=== PATIENT | female | born 1985 | race Caucasian/White ===

== ENCOUNTER 2016-12-16 10:35 | Emergency (ER) | payer BC ==
[~2016-12-16 10:35] MED LIST: AZEL15GE TOP; CLIN1GEL5 TOP; MTR600X PO; OXYC5TAB PO; PRENTAB26 PO
[2016-12-16 10:50] VITALS: TEMP 36.3; Ht 170.2 cm
[2016-12-16] MEDS ORDERED: BCPILLS PO (11:03)
[2016-12-16] MEDS ORDERED: KETOROLAC TROMETHAMINE 60 MG/2 ML VIAL IM STA (11:44)
--- NOTE | 2016-12-16 12:14 | DIAGNOSTIC IMAGING REPORT ---
RIGHT ANKLE 3 VIEWS CLINICAL HISTORY: Right ankle pain. Twisting injury. FINDINGS: 3 views of the right ankle are obtained. No prior studies are available for comparison at the time of dictation. The skeletal structures are well mineralized. No fracture is seen at the ankle joint. A small avulsion fracture is suggested along the lateral aspect of the hindfoot, seen only on the frontal view. The ankle mortise is intact. There is no joint effusion. There is minimal overlying soft tissue swelling. IMPRESSION: 1. There is no radiographic evidence of right ankle fracture. 2. Suspect a small avulsion fracture lung the lateral aspect of the hindfoot, likely arising from the calcaneus. This is only seen on the frontal view. Correlate for point tenderness at this site. Electronically signed by: Ken Schmidt M.D. 12/16/2016 12:13 PM Dictated Date/Time: 12/16/2016 12:10 PM
--- NOTE | 2016-12-16 12:44 | EMERGENCY ROOM VISIT NOTE ---
ED Visit Note First contact with patient: 10:58 CHIEF COMPLAINT: Right ankle injury a few hours ago HISTORY OF PRESENT ILLNESS: Patient is a 31-year-old white female who presents to emergency department, her for evaluation of right ankle pain. She was finishing a 5K, when she rolled the right ankle. She is not sure if she stepped on a rock or some uneven ground. She rolled the right ankle, and fell striking the flexed left knee. She caught herself with her hands, and notes some abrasions to her palms. She did not strike her head or lose consciousness. She was able to get up and take the last few steps to reddish the race, then sat down and subsequently has not put any weight on the right ankle. She did not take any medications for pain, nor apply any ice, but ice was given to her here in the emergency department. She rates her pain a 7/10. She denies any prior history of right ankle injuries. REVIEW OF SYSTEMS: Review of systems as per HPI. All other systems reviewed were negative. At least 6 systems reviewed. PMH: Electronic medical records are reviewed and summarized as above/below. See Problem List. SOCIAL HISTORY: Patient lives at home with her . Employed. PHYSICAL EXAM: Vital Signs: Reviewed Nurse's notes. MENTAL STATUS: Alert, oriented, and cooperative. MUSCULOSKELETAL: The right ankle is moderately swollen and tender over the lateral aspect but the skin is intact and there is no ligamentous instability. No pain over the 5th metatarsal or fibular head. Lisfranc joint is negative. There is no deformity. The foot and toes are warm and well-perfused. Sensation to pain and light touch is intact. Examination of the left knee show a superficial abrasion, with slight soft tissue swelling, more over the tibial tuberosity, then over the patella. There is no knee joint effusion palpable. No palpable deformity over the patella, and knee range of motion is full. No ligamentous instability is appreciated. EMERGENCY DEPARTMENT COURSE: The patient had been given an ice pack. Her primary concern is her right ankle. On exam, I do not suspect fracture involving the left knee, and she was in agreement and deferred x-rays of the knee. She was reluctant to take any oral medications that she has a sensitive stomach and had not had anything to eat or drink, therefore was given Toradol 60 mg IM. X-ray reveals of the right ankle shows a small evulsion fracture laterally, with soft tissue swelling. A compression sleeve and gel splint were applied to the ankle under my direction and the position was satisfactory. Crutches were issued and patient was instructed on a non weight bearing gait. Conservative care measures were discussed. Patient declined narcotic analgesia. She was referred to orthopedics or her PCP for follow-up if her symptoms are not improving. Differential diagnosis include foot verses ankle sprain/fracture, contusion, dislocation. RIGHT ANKLE 3 VIEWS CLINICAL HISTORY: Right ankle pain. Twisting injury. FINDINGS: 3 views of the right ankle are obtained. No prior studies are available for comparison at the time of dictation. The skeletal structures are well mineralized. No fracture is seen at the ankle joint. A small avulsion fracture is suggested along the lateral aspect of the hindfoot, seen only on the frontal view. The ankle mortise is intact. There is no joint effusion. There is minimal overlying soft tissue swelling. IMPRESSION: 1. There is no radiographic evidence of right ankle fracture. 2. Suspect a small avulsion fracture lung the lateral aspect of the hindfoot, likely arising from the calcaneus. This is only seen on the frontal view. Correlate for point tenderness at this site. Problem List Medical Problems: (1) Abdominal pain affecting Status: Resolved (2) Asthma, Unspecified Status: Chronic (3) Blunt abdominal trauma Status: Resolved (4) CHOLELITH W CHOLECYS NEC Status: Resolved (5) INFECTIOUS MONONUCLEOSIS Status: Resolved (6) Status: Resolved (7) Shortness of breath Status: Resolved (8) URIN TRACT INFECTION NOS Status: Resolved Surgical Problems: (1) Cholecystectomy Status: Resolved Current/Historical Medications Scheduled Control Pills ( Control Pills), 1 TAB PO DAILY Multivit/Min/Iron/Fol Ac/Pren ( Vitamin), 1 TAB PO DAILY Allergies Coded Allergies: Methylprednisolone (Verified Allergy, Severe, EDEMA AIRWAY, 12/16/16) IV FORM, NO PROBLEM WITH DEPOMEDROL Amoxicillin (Verified Allergy, Unknown, HIVES, 12/16/16) Penicillins (Verified Allergy, Unknown, `, 12/16/16) Sulfamethoxazole w/Trimethoprim (Verified Allergy, Unknown, NAUSEA, 12/16/16 ) Vital Signs Date Time Temp Pulse Resp B/P (MAP) Pulse Ox O2 Delivery O2 Flow Rate FiO2 12/16/16 13:08 59 16 112/48 97 12/16/16 10:50 36.3 59 17 95/62 93 Room Air Medications Administered Medications (Trade) Dose Ordered Sig/Diane Route Start Time Stop Time Status Last Admin Dose Admin Ketorolac Tromethamine (Toradol Inj) 60 mg NOW STAT IM 12/16/16 11:44 12/16/16 11:45 DC 12/16/16 11:44 60 MG Departure Information Impression Primary Impression: Right ankle sprain Referrals Lizette Kern M.D. (PCP) Patient Instructions My [facility] Additional Instructions Ibuprofen(Motrin, Advil) may be used for fever or pain. Use 600mg every six hours as needed. Take with food. Avoid using more than 2400mg in a 24 hour period. Do not use 2400mg per day for more than three consecutive days without physician direction. Prolonged inappropriate use can lead to stomach upset or ulcers. This medication can be taken if you need to drive, work, or perform activities which may be dangerous when taking narcotic pain medication. (AND/OR) Acetaminophen(Tylenol) may be used for fever or pain. Use 1000mg every six hours as needed. Avoid using more than 3000mg in a 24 hour period. This medication can be taken if you need to drive, work, or perform activities which may be dangerous when taking narcotic pain medication. Ice compresses for 20 minutes at a time four times daily for 2-3 days. Use the gel splint and crutches as instructed. Rest and elevate your injury. Continue current medications. Return to the ER immediately for any numbness, tingling, severe pain, extreme swelling in the extremity or as needed. Followup with your family doctor or orthopedic surgery if no improvement in 5-7 days.
[2016-12-16 13:08] VITALS: BP 112/48; PULSE 59; O2SAT 97
== END 2016-12-16 13:09 | disposition home or self-care (01) ==
LOC: C.EDB 10:36 → C.EDD 13:09
DX: S93.401A Sprain of unspecified ligament of right ankle, initial encounter (principal); S80.212A Abrasion, left knee, initial encounter; X50.1XXA Overexertion from prolonged static or awkward postures, initial encounter; W01.198A Fall on same level from slipping, tripping and stumbling with subsequent striking against other object, initial encounter; J45.909 Unspecified asthma, uncomplicated; Z87.828 Personal history of other (healed) physical injury and trauma; Z87.440 Personal history of urinary (tract) infections; Z90.49 Acquired absence of other specified parts of digestive tract

== ENCOUNTER → 2017-01-01 | Outpatient (CLI) | payer BC ==
[~2017-01-01] MED LIST changes: -AZEL15GE TOP; +BCPILLS PO; -CLIN1GEL5 TOP; -MTR600X PO; -OXYC5TAB PO
--- NOTE | 2017-01-01 13:16 | DIAGNOSTIC IMAGING REPORT ---
RIGHT ANKLE MIN 3 VIEWS CLINICAL HISTORY: RIGHT ANKLE FX Right trauma. Pain. COMPARISON: 12/16/2016 DISCUSSION: No change in the small linear avulsion from the lateral calcaneus. All remaining osseous structures are unremarkable. Subtalar joint is intact. There is no evidence for soft tissue swelling. IMPRESSION: Small linear avulsion anterior calcaneus unchanged from the prior study. The above report was generated using voice recognition software. It may contain grammatical, syntax or spelling errors. Electronically signed by: Brett Marin M.D. 01/01/2017 1:14 PM Dictated Date/Time: 01/01/2017 1:13 PM
== END | disposition home or self-care (01) ==
LOC: C.RDSM 07:00
PROVIDERS: ATTEND Family Medicine
DX: S92.001A Unspecified fracture of right calcaneus, initial encounter for closed fracture (principal); X58.XXXA Exposure to other specified factors, initial encounter

== ENCOUNTER → 2017-09-30 | Outpatient (CLI) | payer BC | END | disposition home or self-care (01) | LOC: C.RDSM 08:20 | PROVIDERS: ATTEND Podiatrist | DX: M79.671 Pain in right foot (principal) ==

== ENCOUNTER → 2017-10-09 | Outpatient (CLI) | payer BC ==
--- NOTE | 2017-10-09 17:23 | DIAGNOSTIC IMAGING REPORT ---
R LOWER EXT NONJOINT WITHOUT CLINICAL HISTORY: RT FOOT AND ANKLE PAIN TECHNIQUE: Multi axial MRI acquisition COMPARISON STUDY: None FINDINGS: Signal characteristics of the bulk of the osseous structures are unremarkable. There is moderate degenerative change of the articular surface between the cuboid and tarsal navicular. Mild subchondral cyst formation is present. There is moderate sclerosis of the articular endplates. All remaining osseous structures are considered unremarkable. Bony alignment is anatomic. All major ligamentous and tendinous structures are intact. There is no evidence for soft tissue mass or collection. IMPRESSION: 1. Moderate degenerative change of the articular services between the cuboid and tarsal navicular. 2. Mild subchondral cyst formation. 3. Study is otherwise negative. The above report was generated using voice recognition software. It may contain grammatical, syntax or spelling errors. Electronically signed by: Brett Marin M.D. 10/09/2017 5:21 PM Dictated Date/Time: 10/09/2017 5:18 PM
--- NOTE | 2017-10-09 17:46 | DIAGNOSTIC IMAGING REPORT ---
R LOWER EXT JOINT WITHOUT CLINICAL HISTORY: ANKLE/FOOT PAIN trauma. Pain. TECHNIQUE: Multi axial MRI acquisition COMPARISON STUDY: None FINDINGS: Significant degenerative change of the articular services between cuboid and tarsal navicular. Moderate degenerative subchondral cyst formation. Signal characteristics of all remaining osseous structures are intact. Ankle mortise is aligned anatomically. Medial lateral collateral ligament structures are intact. All major ligamentous and tendinous structures are unremarkable. Kidneys tendon is intact. Structures the plantar fascia are unremarkable. IMPRESSION: 1. Considerable degenerative changes of the articular services between tarsal cuboid and tarsal navicular. 2. All remaining components of the study are unremarkable. 3. All major ligamentous and tendinous structures are intact. The above report was generated using voice recognition software. It may contain grammatical, syntax or spelling errors. Electronically signed by: Brett Marin M.D. 10/09/2017 5:45 PM Dictated Date/Time: 10/09/2017 5:41 PM
== END | disposition home or self-care (01) ==
LOC: C.MRI 16:17
PROVIDERS: ATTEND Podiatrist
DX: M77.50 Other enthesopathy of unspecified foot and ankle (principal); M17.11 Unilateral primary osteoarthritis, right knee; M79.2 Neuralgia and neuritis, unspecified; M79.671 Pain in right foot

== ENCOUNTER 2019-04-12 05:46 | Inpatient (IN) ==
--- NOTE | 2019-04-06 13:34 | Anesthesiology Consultation ---
Date of Service April 06, 2019 Assessment & Plan (1) Encounter for pre-operative examination: Chart Review Chart Review: Pending: Refer to Additional Notes / Consult section (pending preop labs) and Patient seen in Pre Admission Testing Teaching & Discussion Pre-Anesthesia Teaching/Discussion Notes: Instructed NPO after midnight before surgery,except medications with 15 cc of water. Medication instructions provided according to the PAT guidelines. History Surgery Operation Date: 04/12/19 07:30 Proposed Procedures p Section in JAMES - Caprice Vásquez MD Height/Weight Height: 5 ft 7 in Weight: 93.4 kg Allergies Allergy/AdvReac Type Severity Reaction Status Date / Time methylprednisolone Allergy Severe EDEMA Verified 03/31/19 15:40 AIRWAY amoxicillin Allergy Unknown HIVES Verified 03/31/19 15:40 Bactrim Allergy Unknown NAUSEA Verified 12/16/16 11:03 Penicillins Allergy Unknown Hives Verified 03/31/19 15:40 sulfamethoxazole Allergy Unknown NAUSEA Verified 03/31/19 15:40 trimethoprim Allergy Unknown NAUSEA Verified 03/31/19 15:40 Medications Home Medications Medication Instructions Recorded Confirmed Last Taken PNV,calcium 18-mayf-zklro acid 1 tab PO QPM 01/31/19 03/31/19 01/30/19 21:00 [ Plus (calcium carb)] clindamycin phosphate 1 applic TOPICAL BID 01/31/19 03/31/19 01/31/19 08:00 Past Medical History Medical History Exercise-induced asthma stable History of anxiety IBS (irritable bowel syndrome) Exercise / Class Metabolic Activity III < 4 Walking/Shop/Light housework Past Family History Family History Aunt Family history of diabetes mellitus Past Surgical History Surgical History History of section History of cholecystectomy History of colonoscopy W/ POLYPECTOMY History of wisdom tooth extraction Past Anesthesia History c/s (primary, failure to descend): 16: dosed epidural at L3-L4 right of midline (pt felt faint and had decreased BP with placement of epidural/laid down per anesthesia records). Patient reports that she did have pain/discomfort during c/s. History of PONV History of PONV () and Hx of Motion Sickness (occasional) Social History Smoking Status: Never smoker Do You Dip or Chew Tobacco: No Hx Alcohol Use: No Hx Substance Use: No substance use type: does not use Review of Systems related reflux. Patient denies chest pain, shortness of breath, cough, wheezing, palpitations. Physical Exam Vital Signs VITALS BP 101/66 P 76 TEMP 98.2 SP02 98%RA RESP 16 PHYSICAL Full neck and c-spine range of motion. Full TMJ range of motion. TMD 4 finger breaths Mallampati Score 1 Dentition: intact Lungs: clear throughout to auscultation Cardiac: regular rate and rhythm, I/ systolic murmur Spine: normal Extremities: no edema
[2019-04-06 15:00] LABS: Basophils # (auto) 0.01 K/uL (0-0.2); Basophils % (auto) 0.1 %; Eosinophils # (auto) 0.07 K/uL (0-0.5); Eosinophils % (auto) 0.9 %; Hematocrit (blood only) 35.2 % (37-47); Hemoglobin 11.8 g/dL (12.0-16.0); Immature Granulocytes # (auto) 0.11 K/uL (0.00-0.02); Immature Granulocytes % (auto) 1.5 %; Lymphocytes # (auto) 1.55 K/uL (1.2-3.4); Lymphocytes % (auto) 20.6 %; Mean Corpuscular Hemoglobin 32.5 pg (25-34); Mean Corpuscular Hgb Conc 33.5 g/dL (32-36); Mean Platelet Volume 11.9 fL (7.4-10.4); Monocytes # (auto) 0.68 K/uL (0.11-0.59); Neutrophils # (auto) 5.12 K/uL (1.4-6.5); Neutrophils % (auto) 67.9 %; Platelet Count 167 K/uL (130-400); RDW Coefficient of Variation 13.6 % (11.5-14.5); RDW Standard Deviation 47.7 fL (36.4-46.3); Red Blood Count 3.63 M/uL (4.2-5.4); White Blood Count 7.54 K/uL (4.8-10.8)
[2019-04-12] MEDS ORDERED: CITRIC ACID/SODIUM CITRATE 15 ML UDC PO SCH (06:00)
[2019-04-12] MEDS ORDERED: CEFAZOLIN 2,000 MG in SYRINGE 0 ML IV SCH (06:00)
[2019-04-12] MEDS ORDERED: LACTATED RINGER'S 1,000 ML IV SCH ×2 (06:00→07:45)
[2019-04-12 06:18] LABS: Basophils # (auto) 0.02 K/uL (0-0.2); Basophils % (auto) 0.2 %; Eosinophils # (auto) 0.09 K/uL (0-0.5); Eosinophils % (auto) 0.9 %; Hematocrit (blood only) 36.3 % (37-47); Hemoglobin 12.4 g/dL (12.0-16.0); Lymphocytes # (auto) 1.98 K/uL (1.2-3.4); Lymphocytes % (auto) 20.3 %; Mean Corpuscular Hemoglobin 31.8 pg (25-34); Mean Corpuscular Volume 93.1 fL (80-100); Mean Platelet Volume 10.7 fL (7.4-10.4); Monocytes # (auto) 0.68 K/uL (0.11-0.59); Neutrophils # (auto) 6.79 K/uL (1.4-6.5); Neutrophils % (auto) 69.6 %; Platelet Count 171 K/uL (130-400); RDW Coefficient of Variation 13.5 % (11.5-14.5); White Blood Count 9.76 K/uL (4.8-10.8)
[2019-04-12 06:19] LABS: Mean Corpuscular Hgb Conc 34.2 g/dL (32-36)
[2019-04-12] MEDS ORDERED: CLINDAMYCIN 900 MG in DEXTROSE 5% 50 ML IV STA (07:19)
[2019-04-12] MEDS ORDERED: GENTAMICIN CONSULT ACTIVE PRN (07:19)
[2019-04-12] MEDS ORDERED: GENTAMICIN SULFATE 40 MG/ML 20 ML VIAL IV STA (07:19)
--- NOTE | 2019-04-12 07:21 | History & Physical Bridge Note ---
Date of Service April 12, 2019 History & Physical Bridge Note I have examined the patient, reviewed the History & Physical and in the interval since the performance of the History & Physical I have noted the following changes of clinical significance: no changes noted
[2019-04-12] MEDS ORDERED: fentaNYL citrate 100 MCG/2 ML VIAL ONE (07:31)
[2019-04-12] MEDS ORDERED: GENTAMICIN SULFATE 150 MG in DEXTROSE 5% 100 ML IV STA (07:31)
[2019-04-12] MEDS ORDERED: MoRPHine SULFATE PF 1 MG/ML 10 ML AMP/VIAL ONE (07:31)
[2019-04-12] MEDS ORDERED: OXYTOCIN 10 UNITS/ML VIAL ONE ×3 (07:34→08:50)
[2019-04-12] MEDS ORDERED: DIPHTHERIA/TETANUS/PERTUSSIS 0.5 ML SYR/VIAL IM ONE (07:44)
[2019-04-12] MEDS ORDERED: SUPERCREAM 0.870% 15 GM JAR EXT PRN (07:44)
[2019-04-12] MEDS ORDERED: HYDROCORTISONE ACETATE 25 MG SUPP PR PRN (07:44)
[2019-04-12] MEDS ORDERED: SENNA 8.6 MG TAB PO PRN (07:44)
[2019-04-12] MEDS ORDERED: MAGNESIUM HYDROXIDE SUSP 30 ML UDC PO PRN (07:44)
[2019-04-12] MEDS ORDERED: BENZOCAINE 20% AER SPR 82.5 GM CAN EXT PRN (07:44)
[2019-04-12] MEDS ORDERED: ePHEDrine sulfate 50 MG/ML SYR ONE (07:53)
[2019-04-12] MEDS ORDERED: PHENYLEPHRINE 100MCG/ML 5ML SYR ONE (07:53)
[2019-04-12] MEDS ORDERED: ONDANSETRON INJ 2 MG/ML 2 ML VIAL ONE (08:15)
[2019-04-12] MEDS ORDERED: ePHEDrine sulfate 50 MG/ML AMP IV PRN (08:17)
[2019-04-12] MEDS ORDERED: NALOXONE HCL 0.08 MG in SYRINGE 1.8 ML IV PRN (08:17)
[2019-04-12] MEDS ORDERED: HYDROmorphone INJ 0.5 MG/0.5 ML SYR IV PRN (08:17)
[2019-04-12] MEDS ORDERED: PROMETHAZINE HCL 25 MG in SODIUM CHLORIDE 0.9% 50 ML IV PRN (08:17)
[2019-04-12] MEDS ORDERED: NALOXONE HCL 1 MG in SODIUM CHLORIDE 0.9% 1000ML 1,000 ML IV PRN (08:17)
[2019-04-12] MEDS ORDERED: MoRPHine SULFATE PF 1 MG/ML 10 ML AMP/VIAL INT SPINAL ONE (08:17)
[2019-04-12] MEDS ORDERED: DiphenhydrAMINE HCL 50 MG/ML VIAL IV PRN (08:17)
[2019-04-12] MEDS ORDERED: LACTATED RINGER'S 500 ML IV PRN (08:17)
[2019-04-12] MEDS ORDERED: NALOXONE HCL 0.4 MG/1 ML VIAL/CARP IV PRN (08:17)
[2019-04-12] MEDS ORDERED: NALBUPHINE HCL INJ 10 MG/ML AMP IV PRN (08:17)
[2019-04-12] MEDS ORDERED: NO NARCOTICS OR SEDATIVES SCH (08:30)
[2019-04-12] MEDS ORDERED: SODIUM CHLORIDE 0.9% 1000ML 1,000 ML IV SCH (08:30)
[2019-04-12] MEDS ORDERED: DC INTRASPINAL MORPHINE SCH (08:30)
--- NOTE | 2019-04-12 08:52 | Post Operative Brief Note ---
Immediate Post Op Note v1 Date of Surgery April 12, 2019 Pre & Post Diagnosis Operation Date: 04/12/19 07:30 Pre-Op Diagnosis: History of prior Caesarean Section Post-Op Diagnosis: Same as pre-op I identified the patient and participated in the time-out.: Yes Procedure Operation Date: 04/12/19 07:30 Actual Procedures p Repeat Section in LD(Bilateral) - Caprice Vásquez MD Surgeon Caprice Vásquez MD Cushion Mat Maker PEDRO Wharton Estimated Blood Loss 800 Findings Consistent with Post-Op Diagnosis Drains Suh Catheter Complications none Disposition Accompanied Patient To Recovery: Yes Disposition: L&D Overlapping Procedure I was present for: the critical portions of procedure. (I WAS PRESENT FOR THE ENTIRE CASE)
[2019-04-12] MEDS ORDERED: NON-FORMULARY MEDICATION (Clindamycin Phosphate 1 APPLN) TOP SCH (09:00)
[2019-04-12] MEDS: ONDANSETRON INJ 2 MG/ML 2 ML VIAL IV PRN ×2 (09:08→14:53)
--- NOTE | 2019-04-12 09:15 | Operative Report ---
DATE OF OPERATION: 04/12/2019 PREOPERATIVE DIAGNOSES: The patient is a 34-year-old G2, P1-0-0-1 at 39 weeks and 6 days of gestation with a history of prior , large for gestational age, declines TOLAC/ ( Trial of labor after / Vaginal after ), desires repeat . POSTOPERATIVE DIAGNOSES: The patient is a 34-year-old G2, P1-0-0-1 at 39 weeks and 6 days of gestation with a history of prior , large for gestational age, declines TOLAC/ ( Trial of labor after / Vaginal after ), desires repeat . PROCEDURE: Repeat low transverse with Pfannenstiel skin incision. SURGEON: Caprice Vásquez MD REGIONAL ENGAGEMENT CONSULTANT: PEDRO Wharton. ESTIMATED BLOOD LOSS: 800 ml. ANESTHESIA: Spinal, Dr. Cali. DRAINS: Suh catheter drained 475 mL of urine. FLUIDS: 1800 mL of lactated ringer. COMPLICATIONS: None. FINDINGS: Baby was a viable female delivered at 08:09 a.m in cephalic presentation. Apgars 9/9, weight is 4145 grams. MATERNAL FINDINGS: Normal uterus, fallopian tubes and ovaries. DESCRIPTION OF PROCEDURE: The patient was taken to the operating room where spinal anesthesia was given without difficulty. She was placed in dorsal supine position with a leftward tilt. She was prepared and draped in usual sterile fashion. A Pfannenstiel skin incision was made from the old scar, carried through to the underlying layer of fascia with the Bovie. Fascia was incised in the midline and incision was extended laterally with the help of Norton scissors. Lower aspect of the fascial incision was then grasped with 2 Karime clamps, elevated, underlying rectus muscles were dissected off sharply with Norton scissors and then upper aspect of the fascial incision was grasped with 2 Karime clamps, elevated, underlying rectus muscles were dissected off sharply with Norton scissors. Rectus muscles were in the midline and incision was extended. The peritoneal incision was extended superiorly and inferiorly with good visualization of the bladder. Bladder blade was inserted. Vesicouterine peritoneum was identified, grasped with pickups, entered sharply with Metzenbaum scissors. Bladder flap was created digitally and bladder blade was reinserted. Lower uterine segment was incised in transverse fashion, incision was extended laterally with the help of Norton scissors. Membranes were ruptured. Clear fluid was obtained. Baby's head was delivered without difficulty. Shoulders were delivered with minimal traction. Mouth and nose were suctioned. Baby was dried. Cord was clamped x2 at 1 minute delay and then cut. Baby was handed off to the waiting pediatric team with Dr. López. Cord blood was obtained. Placenta was delivered manually as intact and complete. Uterus was exteriorized, cleared of all clots and debris. Fundus was firm. Uterine incision was repaired with 0 Vicryl in a running locked fashion and a second imbricating layer was placed with 0 Vicryl in a running locked fashion. Excellent hemostasis was achieved. Posterior cul-de-sac was irrigated with warm normal saline and suctioned. Uterus was returned to the abdomen. The pelvis was irrigated with warm normal saline and suctioned. Uterine incision was checked to be again hemostatic. Parietal peritoneum was grasped with 3 Jennyfer clamps, reapproximated with 3-0 Vicryl and the rectus muscles were reapproximated with the same suture in a running fashion. Excellent hemostasis was achieved. The rectus fascia was reapproximated with 0 Vicryl in a running fashion. Subcuticular fat tissue was brought together with 3-0 Vicryl and skin was closed with 4-0 Monocryl in a subcuticular fashion. The patient tolerated the procedure well. Sponge, lap, needle count was correct x3. No complications happened. I was present during whole procedure. The patient received 900 mg of clindamycin and 150 mg of gentamicin Before procedure. She was taken to recovery room in stable condition. I attest to the content of the Intraoperative Record and any orders documented therein. Any exceptions are noted below. [facility]
[2019-04-12] MEDS: FERROUS SULFATE 325 MG TAB PO SCH (09:45)
[2019-04-12] MEDS: DOCUSATE SODIUM 100 MG CAP PO SCH ×2 (09:45→20:42)
[2019-04-12] MEDS: SIMETHICONE 80 MG CHEW PO SCH ×4 (09:45→20:43)
[2019-04-12] MEDS: PRENATAL VITAMIN 1 TAB PO SCH (09:45)
[2019-04-12] MEDS: KETOROLAC 30 MG/ML VIAL IV PRN ×3 (09:57→23:43)
[2019-04-12] MEDS: OXYTOCIN 20 UNITS in LACTATED RINGER'S 1,000 ML IV SCH ×2 (11:28→19:53)
--- NOTE | 2019-04-12 11:45 | Anesthesiology Progress Note ---
Date of Service April 12, 2019 Anesthesia Post Procedure Vital Signs Vital Signs: Temp Pulse Resp BP Pulse Ox 04/12/19 11:06 70 107/55 L 96 04/12/19 11:01 69 96 04/12/19 11:00 36.4 C L 20 04/12/19 10:56 67 117/61 94 04/12/19 10:51 68 95 04/12/19 10:47 65 128/63 04/12/19 10:46 66 94 04/12/19 10:41 65 96 04/12/19 10:38 70 143/94 H 04/12/19 10:36 72 96 04/12/19 10:31 74 20 98 04/12/19 10:26 70 123/67 98 04/12/19 10:21 72 97 04/12/19 10:16 77 112/63 96 04/12/19 10:11 76 97 04/12/19 10:06 36.3 C L 68 20 129/68 96 04/12/19 10:01 67 97 04/12/19 09:56 74 122/59 L 96 04/12/19 09:51 70 96 04/12/19 09:50 18 04/12/19 09:46 67 130/63 94 04/12/19 09:41 70 96 04/12/19 09:40 16 04/12/19 09:36 71 127/70 96 04/12/19 09:31 73 96 04/12/19 09:30 16 04/12/19 09:26 68 125/57 L 93 04/12/19 09:21 65 91 04/12/19 09:20 18 04/12/19 09:16 68 127/64 90 04/12/19 09:11 75 94 04/12/19 09:10 70 18 96 04/12/19 09:07 70 89 L 04/12/19 09:06 69 121/58 L 91 04/12/19 09:01 75 92 04/12/19 09:00 36.4 C L 18 04/12/19 08:57 82 121/57 L 94 04/12/19 08:56 90 95 04/12/19 07:36 89 97 04/12/19 07:31 94 H 96 04/12/19 07:26 90 97 04/12/19 07:09 94 H 140/79 04/12/19 07:05 83 141/73 H 04/12/19 07:00 37.0 C 20 04/12/19 06:04 36.9 C 100 H 18 134/62 Pain Intensity Bilateral Abdomen: Pain Intensity: 3 Transfer of Care Handoff Completed per policy Notes Mental Status: alert / awake / arousable Patient Amnestic to Procedure: Yes Nausea / Vomiting: adequately controlled Pain: adequately controlled Airway Patency, RR, SpO2: stable & adequate BP & HR: stable & adequate Hydration State: stable & adequate Neuraxial Anesthesia: was administered and sensory block is resolving Anesthetic Complications: no major complications apparent and Pt Satisfied with anesthetic care
[2019-04-12] MEDS ORDERED: SURGICEL ABSORB HEMOSTAT 2IN X 14IN TOP ONE (14:42)
--- NOTE | 2019-04-12 16:30 | Obstetrical Progress Note ---
Date of Service April 12, 2019 Subjective Patient is seen and examined. She feels well, no complaints. Pain is under control with oral meds. Had nausea earlier when she was rolled to her room Has been tolerating clears and crackers without vomiting Flatus none She has h/o chronic constipation, she goes every 2-4 days but no enough She had very hard time going after her last Csection Bleeding is minimal No fever/ chills/ CP/ SOB/ N&V/ Leg pain Breast feeding without problems Vital Signs Temp Pulse Pulse Resp BP BP Pulse Ox 04/12/19 15:15 36.5 C 75 19 118/68 99 04/12/19 15:00 19 98 04/12/19 14:00 19 99 04/12/19 13:00 17 98 04/12/19 12:00 19 99 04/12/19 11:21 36.5 C 68 20 105/62 96 04/12/19 11:06 70 107/55 L 96 04/12/19 11:01 69 96 04/12/19 11:00 36.4 C L 20 04/12/19 10:56 67 117/61 94 04/12/19 10:51 68 95 04/12/19 10:47 65 128/63 04/12/19 10:46 66 94 04/12/19 10:41 65 96 04/12/19 10:38 70 143/94 H 04/12/19 10:36 72 96 04/12/19 10:31 74 20 98 04/12/19 10:26 70 123/67 98 04/12/19 10:21 72 97 04/12/19 10:16 77 112/63 96 04/12/19 10:11 76 97 04/12/19 10:06 36.3 C L 68 20 129/68 96 04/12/19 10:01 67 97 04/12/19 09:56 74 122/59 L 96 04/12/19 09:51 70 96 04/12/19 09:50 18 04/12/19 09:46 67 130/63 94 04/12/19 09:41 70 96 04/12/19 09:40 16 04/12/19 09:36 71 127/70 96 04/12/19 09:31 73 96 04/12/19 09:30 16 04/12/19 09:26 68 125/57 L 93 10/29/19 09:21 65 91 04/12/19 09:20 18 04/12/19 09:16 68 127/64 90 04/12/19 09:11 75 94 04/12/19 09:10 70 18 96 04/12/19 09:07 70 89 L 04/12/19 09:06 69 121/58 L 91 04/12/19 09:01 75 92 04/12/19 09:00 36.4 C L 18 04/12/19 08:57 82 121/57 L 94 04/12/19 08:56 90 95 04/12/19 07:36 89 97 04/12/19 07:31 94 H 96 04/12/19 07:26 90 97 04/12/19 07:09 94 H 140/79 04/12/19 07:05 83 141/73 H 04/12/19 07:00 37.0 C 20 04/12/19 06:04 36.9 C 100 H 18 134/62 Pulse Ox Pulse Ox 04/12/19 15:15 04/12/19 15:00 04/12/19 14:00 04/12/19 13:00 04/12/19 12:00 04/12/19 11:21 96 96 04/12/19 11:06 04/12/19 11:01 04/12/19 11:00 04/12/19 10:56 04/12/19 10:51 04/12/19 10:47 04/12/19 10:46 04/12/19 10:41 04/12/19 10:38 04/12/19 10:36 04/12/19 10:31 04/12/19 10:26 04/12/19 10:21 04/12/19 10:16 04/12/19 10:11 04/12/19 10:06 04/12/19 10:01 04/12/19 09:56 04/12/19 09:51 04/12/19 09:50 04/12/19 09:46 04/12/19 09:41 04/12/19 09:40 04/12/19 09:36 04/12/19 09:31 04/12/19 09:30 04/12/19 09:26 04/12/19 09:21 04/12/19 09:20 04/12/19 09:16 04/12/19 09:11 04/12/19 09:10 04/12/19 09:07 04/12/19 09:06 04/12/19 09:01 04/12/19 09:00 04/12/19 08:57 04/12/19 08:56 04/12/19 07:36 04/12/19 07:31 04/12/19 07:26 04/12/19 07:09 04/12/19 07:05 04/12/19 07:00 04/12/19 06:04 PE: General: Alert, orientedx3, NAD CVS: S1S2 RRR Lungs; CTAB Abd: soft, NT, BS+, fundus firm, below Umbilicus, distended abdomen but very soft and NT, tympanic to percussion Incision/ dressing: Clean, dry, intact Perineum intact, Lochia rubra minimal Ext; NT, no edema AP: 34 yo s/p C Section, pod# 0 VSS Afebrile doing well Distended abdomen but soft, NT, recent delivery of a large baby, h/o chronic constipation No s/s ileus or obstruction nor bleeding Plan to start bowel regimen and continue to monitor closely All questions were answered Results & Data Vital Signs (Past 12 Hours) Vital Signs Temp Pulse Pulse Resp BP BP Pulse Ox 04/12/19 15:15 36.5 C 75 19 118/68 99 04/12/19 15:00 19 98 04/12/19 14:00 19 99 04/12/19 13:00 17 98 04/12/19 12:00 19 99 04/12/19 11:21 36.5 C 68 20 105/62 96 04/12/19 11:06 70 107/55 L 96 04/12/19 11:01 69 96 04/12/19 11:00 36.4 C L 20 04/12/19 10:56 67 117/61 94 04/12/19 10:51 68 95 04/12/19 10:47 65 128/63 04/12/19 10:46 66 94 04/12/19 10:41 65 96 04/12/19 10:38 70 143/94 H 04/12/19 10:36 72 96 04/12/19 10:31 74 20 98 04/12/19 10:26 70 123/67 98 04/12/19 10:21 72 97 04/12/19 10:16 77 112/63 96 04/12/19 10:11 76 97 04/12/19 10:06 36.3 C L 68 20 129/68 96 04/12/19 10:01 67 97 04/12/19 09:56 74 122/59 L 96 04/12/19 09:51 70 96 04/12/19 09:50 18 04/12/19 09:46 67 130/63 94 04/12/19 09:41 70 96 04/12/19 09:40 16 04/12/19 09:36 71 127/70 96 04/12/19 09:31 73 96 04/12/19 09:30 16 04/12/19 09:26 68 125/57 L 93 04/12/19 09:21 65 91 04/12/19 09:20 18 04/12/19 09:16 68 127/64 90 04/12/19 09:11 75 94 04/12/19 09:10 70 18 96 04/12/19 09:07 70 89 L 04/12/19 09:06 69 121/58 L 91 04/12/19 09:01 75 92 04/12/19 09:00 36.4 C L 18 04/12/19 08:57 82 121/57 L 94 04/12/19 08:56 90 95 04/12/19 07:36 89 97 04/12/19 07:31 94 H 96 04/12/19 07:26 90 97 04/12/19 07:09 94 H 140/79 04/12/19 07:05 83 141/73 H 04/12/19 07:00 37.0 C 20 04/12/19 06:04 36.9 C 100 H 18 134/62 Pulse Ox Pulse Ox 04/12/19 15:15 04/12/19 15:00 04/12/19 14:00 04/12/19 13:00 04/12/19 12:00 04/12/19 11:21 96 96 04/12/19 11:06 04/12/19 11:01 04/12/19 11:00 04/12/19 10:56 04/12/19 10:51 04/12/19 10:47 04/12/19 10:46 04/12/19 10:41 04/12/19 10:38 04/12/19 10:36 04/12/19 10:31 04/12/19 10:26 04/12/19 10:21 04/12/19 10:16 04/12/19 10:11 04/12/19 10:06 04/12/19 10:01 04/12/19 09:56 04/12/19 09:51 04/12/19 09:50 04/12/19 09:46 04/12/19 09:41 04/12/19 09:40 04/12/19 09:36 04/12/19 09:31 04/12/19 09:30 04/12/19 09:26 04/12/19 09:21 04/12/19 09:20 04/12/19 09:16 04/12/19 09:11 04/12/19 09:10 04/12/19 09:07 04/12/19 09:06 04/12/19 09:01 04/12/19 09:00 04/12/19 08:57 04/12/19 08:56 04/12/19 07:36 04/12/19 07:31 04/12/19 07:26 04/12/19 07:09 04/12/19 07:05 04/12/19 07:00 04/12/19 06:04
[2019-04-12] MEDS: POLYETHYLENE (MIRALAX) 17 GM PACK PO SCH (19:55)
[2019-04-12] MEDS: MAGNESIUM HYDROXIDE SUSP 30 ML UDC PO SCH (20:43)
[2019-04-12] MEDS ORDERED: PRENATAL VITAMIN 1 TAB PO SCH (21:00)
[2019-04-13] MEDS ORDERED: OXYCODONE/ACETAMINOPHEN 5mg/325mg TAB PO PRN (02:18)
[2019-04-13] MEDS ORDERED: ONDANSETRON INJ 2 MG/ML 2 ML VIAL IV PRN (02:18)
[2019-04-13] MEDS ORDERED: PROMETHAZINE HCL 25 MG in SODIUM CHLORIDE 0.9% 50 ML IV PRN (02:18)
[2019-04-13] MEDS ORDERED: DiphenhydrAMINE HCL 50 MG/ML VIAL IV PRN (02:18)
[2019-04-13] MEDS: IBUPROFEN 600 MG TAB PO PRN ×4 (05:15→22:51)
[2019-04-13 07:05] LABS: Basophils # (auto) 0.02 K/uL (0-0.2); Basophils % (auto) 0.2 %; Eosinophils # (auto) 0.08 K/uL (0-0.5); Eosinophils % (auto) 0.7 %; Hematocrit (blood only) 34.9 % (37-47); Hemoglobin 11.4 g/dL (12.0-16.0); Immature Granulocytes # (auto) 0.09 K/uL (0.00-0.02); Immature Granulocytes % (auto) 0.7 %; Lymphocytes # (auto) 1.29 K/uL (1.2-3.4); Lymphocytes % (auto) 10.6 %; Mean Corpuscular Hemoglobin 31.6 pg (25-34); Mean Corpuscular Hgb Conc 32.7 g/dL (32-36); Mean Corpuscular Volume 96.7 fL (80-100); Monocytes # (auto) 0.68 K/uL (0.11-0.59); Monocytes % (auto) 5.6 %; Neutrophils # (auto) 9.96 K/uL (1.4-6.5); Neutrophils % (auto) 82.2 %; Platelet Count 161 K/uL (130-400); RDW Coefficient of Variation 13.8 % (11.5-14.5); RDW Standard Deviation 48.1 fL (36.4-46.3); Red Blood Count 3.61 M/uL (4.2-5.4); White Blood Count 12.12 K/uL (4.8-10.8)
--- NOTE | 2019-04-13 07:32 | Obstetrical Progress Note ---
Date of Service April 13, 2019 Physical Exam Physical Exam: abdomen soft and non tender incision is clean and dry bandage removed vaginal bleeding scant hgb 11.4 no calf tenderness bowel sound are normal Results & Data Vital Signs (Past 12 Hours) Vital Signs Temp Pulse Resp BP Pulse Ox 04/13/19 03:20 36.7 C 75 18 106/63 94 04/13/19 02:10 18 95 04/13/19 01:20 18 95 04/13/19 00:05 18 96 04/12/19 23:10 18 95 04/12/19 22:00 18 96 04/12/19 21:15 18 98 04/12/19 20:00 18 98
[2019-04-13] MEDS: SIMETHICONE 80 MG CHEW PO SCH ×4 (09:29→20:16)
[2019-04-13] MEDS: FERROUS SULFATE 325 MG TAB PO SCH (09:29)
[2019-04-13] MEDS: PRENATAL VITAMIN 1 TAB PO SCH (09:29)
[2019-04-13] MEDS: DOCUSATE SODIUM 100 MG CAP PO SCH ×2 (09:29→20:16)
[2019-04-13] MEDS: POLYETHYLENE (MIRALAX) 17 GM PACK PO SCH (09:30)
[2019-04-13] MEDS: KETOROLAC 30 MG/ML VIAL IV PRN (09:30)
--- NOTE | 2019-04-13 10:17 | Anesthesiology Progress Note ---
Date of Service April 13, 2019 Anesthesia Post Procedure Vital Signs Vital Signs: Temp Pulse Pulse Resp BP BP Pulse Ox 04/13/19 07:58 36.8 C 81 18 95/56 L 95 04/13/19 03:20 36.7 C 75 18 106/63 94 04/13/19 02:10 18 95 04/13/19 01:20 18 95 04/13/19 00:05 18 96 04/12/19 23:10 18 95 04/12/19 22:00 18 96 04/12/19 21:15 18 98 04/12/19 20:00 18 98 04/12/19 19:25 36.5 C 75 18 105/61 96 04/12/19 15:15 36.5 C 75 19 118/68 99 04/12/19 15:00 19 98 04/12/19 14:00 19 99 04/12/19 13:00 17 98 04/12/19 12:00 19 99 04/12/19 11:21 36.5 C 68 20 105/62 96 04/12/19 11:06 70 107/55 L 96 04/12/19 11:01 69 96 04/12/19 11:00 36.4 C L 20 04/12/19 10:56 67 117/61 94 04/12/19 10:51 68 95 04/12/19 10:47 65 128/63 04/12/19 10:46 66 94 04/12/19 10:41 65 96 04/12/19 10:38 70 143/94 H 04/12/19 10:36 72 96 04/12/19 10:31 74 20 98 04/12/19 10:26 70 123/67 98 04/12/19 10:21 72 97 04/12/19 10:16 77 112/63 96 Pulse Ox Pulse Ox 04/13/19 07:58 04/13/19 03:20 04/13/19 02:10 04/13/19 01:20 04/13/19 00:05 04/12/19 23:10 04/12/19 22:00 04/12/19 21:15 04/12/19 20:00 04/12/19 19:25 04/12/19 15:15 04/12/19 15:00 04/12/19 14:00 04/12/19 13:00 04/12/19 12:00 04/12/19 11:21 96 96 04/12/19 11:06 04/12/19 11:01 04/12/19 11:00 04/12/19 10:56 04/12/19 10:51 04/12/19 10:47 04/12/19 10:46 04/12/19 10:41 04/12/19 10:38 04/12/19 10:36 04/12/19 10:31 04/12/19 10:26 04/12/19 10:21 04/12/19 10:16 Pain Intensity Bilateral Abdomen: Pain Intensity: 3 Transfer of Care Handoff Completed per policy Notes Mental Status: alert / awake / arousable and participated in evaluation Nausea / Vomiting: adequately controlled Pain: adequately controlled Airway Patency, RR, SpO2: stable & adequate BP & HR: stable & adequate Hydration State: stable & adequate Neuraxial Anesthesia: was administered and sensory block resolved Anesthetic Complications: no major complications apparent and Pt Satisfied with anesthetic care Notes: Pt c/o mild bilateral hand tingling - counseled patient that this was unlikely to be from spinal. Patient denies headache this morning. Has been up walking without weakness or residual numbness. Patient encouraged to contact anesthesia for any concerns or new headache
[2019-04-13] MEDS: ACETAMINOPHEN 325 MG TAB PO PRN ×3 (11:45→20:18)
[2019-04-13] MEDS: MAGNESIUM HYDROXIDE SUSP 30 ML UDC PO SCH ×2 (11:48→20:16)
[2019-04-13] MEDS ORDERED: BISACODYL 5 MG TABEC PO SCH (20:00)
[2019-04-14] MEDS: ACETAMINOPHEN 325 MG TAB PO PRN ×4 (01:34→20:37)
[2019-04-14] MEDS: IBUPROFEN 600 MG TAB PO PRN ×4 (04:53→18:58)
[2019-04-14 07:39] LABS: Hematocrit (blood only) 31.5 % (37-47); Hemoglobin 10.4 g/dL (12.0-16.0)
[2019-04-14] MEDS ORDERED: BISACODYL 10 MG SUPP PR PRN (07:44)
[2019-04-14] MEDS: DOCUSATE SODIUM 100 MG CAP PO SCH ×2 (08:08→21:13)
[2019-04-14] MEDS: FERROUS SULFATE 325 MG TAB PO SCH (08:08)
[2019-04-14] MEDS: SIMETHICONE 80 MG CHEW PO SCH ×4 (08:08→21:13)
[2019-04-14] MEDS: PRENATAL VITAMIN 1 TAB PO SCH (08:08)
--- NOTE | 2019-04-14 10:22 | Obstetrical Progress Note ---
Date of Service April 14, 2019 Assessment & Plan (1) delivery delivered: post op day 32 pt doing well anticipate disc tomorrow Subjective Ambulation: ambulating normally Voiding: no voiding problems Passing Gas:: Yes Diet Tolerance:: clear liquids Lochia:: Small Feeding Type:: breast feeding Review of Systems All systems reviewed & are unremarkable except as noted in HPI & below Physical Exam Constitutional WD/WN, vitals as above well developed and well nourished Eyes PERRL, conjunctivae normal, anicteric sclerae ENMT external ear and nose normal, oropharynx normal Neck trachea midline, no thyromegaly Respiratory normal respiratory effort, lungs clear to auscultation Cardiovascular RRR, no murmur, no edema Chest (Breasts) normal inspection/palpation of breasts Gastrointestinal (Abdomen) normal bowel sounds, soft, nontender, no hepatosplenomegaly Musculoskeletal no cyanosis or clubbing, extremities motor strength 5/5 Skin no rashes, warm and dry + incision (Clean,dry and intact) Neurologic patellar DTR's 2+ bilat, sensation intact Psychiatric A+Ox3, euthymic affect Genitourinary normal external appearance Lymphatic no cervical or axillary lymphadenopathy Results & Data Vital Signs (Past 12 Hours) Vital Signs Temp Pulse Resp BP Pulse Ox 04/13/19 22:45 36.6 C 64 18 98/48 L 96
[2019-04-14] MEDS: MAGNESIUM HYDROXIDE SUSP 30 ML UDC PO SCH (21:12)
[2019-04-15] MEDS: IBUPROFEN 600 MG TAB PO PRN ×3 (00:24→11:12)
[2019-04-15] MEDS: ACETAMINOPHEN 325 MG TAB PO PRN ×3 (01:51→15:00)
[2019-04-15] MEDS: SIMETHICONE 80 MG CHEW PO SCH (08:15)
[2019-04-15] MEDS: DOCUSATE SODIUM 100 MG CAP PO SCH (08:15)
[2019-04-15] MEDS: POLYETHYLENE (MIRALAX) 17 GM PACK PO SCH (08:15)
[2019-04-15] MEDS: PRENATAL VITAMIN 1 TAB PO SCH (08:15)
[2019-04-15] MEDS: FERROUS SULFATE 325 MG TAB PO SCH (08:15)
--- NOTE | 2019-04-15 09:50 | Obstetrical Progress Note ---
Date of Service April 15, 2019 Subjective Patient is seen and examined. She feels well, no complaints. Pain is under control with oral meds. Ambulating without dizziness Voiding without difficulty Tolerating regular diet with out N&V Flatus + BM + Bleeding is minimal No fever/ chills/ CP/ SOB/ N&V/ Leg pain Breast feeding without problems Vital Signs Temp Pulse Resp BP Pulse Ox 04/15/19 08:49 36.5 C 66 16 106/68 96 04/15/19 01:40 36.7 C 71 18 111/70 04/14/19 19:45 36.8 C 87 18 108/70 04/14/19 16:40 36.4 C L 65 18 105/66 97 Lab Results 04/06/19 04/06/19 04/12/19 Range/Units 13:50 13:50 06:08 WBC 7.54 (4.8-10.8) K/uL RBC 3.63 L (4.2-5.4) M/uL Hgb 11.8 L (12.0-16.0) g/dL Hct 35.2 L (37-47) % MCV 97.0 (80-100) fL MCH 32.5 (25-34) pg MCHC 33.5 (32-36) g/dL RDW Std Deviation 47.7 H (36.4-46.3) fL RDW Coeff of Gabriele 13.6 (11.5-14.5) % Plt Count 167 (130-400) K/uL MPV 11.9 H (7.4-10.4) fL Immature Gran % (Auto) 1.5 % Neut % (Auto) 67.9 % Lymph % (Auto) 20.6 % [place] % (Auto) 9.0 % Eos % (Auto) 0.9 % Baso % (Auto) 0.1 % Immature Gran # (Auto) 0.11 H (0.00-0.02) K/uL Neut # (Auto) 5.12 (1.4-6.5) K/uL Lymph # (Auto) 1.55 (1.2-3.4) K/uL [place] # (Auto) 0.68 H (0.11-0.59) K/uL Eos # (Auto) 0.07 (0-0.5) K/uL Baso # (Auto) 0.01 (0-0.2) K/uL Blood Type O Positive O Positive Antibody Screen NEGATIVE NEGATIVE 04/12/19 04/13/19 04/14/19 Range/Units 06:08 06:57 07:21 WBC 9.76 12.12 H (4.8-10.8) K/uL RBC 3.90 L 3.61 L (4.2-5.4) M/uL Hgb 12.4 11.4 L 10.4 L (12.0-16.0) g/dL Hct 36.3 L 34.9 L 31.5 L (37-47) % MCV 93.1 96.7 (80-100) fL MCH 31.8 31.6 (25-34) pg MCHC 34.2 32.7 (32-36) g/dL RDW Std Deviation 46.0 48.1 H (36.4-46.3) fL RDW Coeff of Gabriele 13.5 13.8 (11.5-14.5) % Plt Count 171 161 (130-400) K/uL MPV 10.7 H 11.0 H (7.4-10.4) fL Immature Gran % (Auto) 2.0 0.7 % Neut % (Auto) 69.6 82.2 % Lymph % (Auto) 20.3 10.6 % [place] % (Auto) 7.0 5.6 % Eos % (Auto) 0.9 0.7 % Baso % (Auto) 0.2 0.2 % Immature Gran # (Auto) 0.20 H 0.09 H (0.00-0.02) K/uL Neut # (Auto) 6.79 H 9.96 H (1.4-6.5) K/uL Lymph # (Auto) 1.98 1.29 (1.2-3.4) K/uL [place] # (Auto) 0.68 H 0.68 H (0.11-0.59) K/uL Eos # (Auto) 0.09 0.08 (0-0.5) K/uL Baso # (Auto) 0.02 0.02 (0-0.2) K/uL Blood Type Antibody Screen PE: General: Alert, orientedx3, NAD CVS: S1S2 RRR Lungs; CTAB Abd: soft, NT, ND, BS+, fundus firm, below Umbilicus Incision: Clean, dry, intact Perineum intact, Lochia rubra minimal Ext; NT, no edema AP: 34 yo s/p C Section, pod# 3 VSS Afebrile doing well Continue routine postop care Encourage ambulation, PO intake All questions were answered Discussed when to call D/C home , f/u in office Results & Data Vital Signs (Past 12 Hours) Vital Signs Temp Pulse Resp BP Pulse Ox 04/15/19 08:49 36.5 C 66 16 106/68 96 04/15/19 01:40 36.7 C 71 18 111/70
--- NOTE | 2019-04-18 21:24 | Discharge Summary ---
DETAILS OF ADMISSION: The patient is a 34-year-old G2, P1-0-0-1 at 39 weeks and 6 days of gestation who has a history of prior . She is scheduled repeat on April 12. She presented to labor and delivery for scheduled surgery which was done without complications. She delivered a viable female at 08:09 a.m. on 04/12/2019. See dictated OP note for details. On postop period, she was doing well. Vital signs stable, afebrile. Urine output was adequate. Her abdomen was distended, but it was soft, nontender and tympanic to percussion. It was thought to be distention from gas as well as delivery of a large baby. She was monitored continuously. Her vital signs stayed stable. Her H and H in the morning was 11.4/34.9 which was stable. She was continuously monitored on postop day #1, she was doing well. Vital signs stable, afebrile. Suh catheter was discontinued. She was ambulated, tolerated regular diet. Her exam was unremarkable. Abdomen was soft, nontender. Incision was clean, dry, and intact. Bleeding was minimal and her fundus was firm, and also on postop day #2, the patient was doing well. Vital signs stable, afebrile, passing gas, tolerating a regular diet, ambulating, without problems. Vital signs stable, afebrile. Physical exam was unremarkable. On postop day #3, she was seen by myself. She was doing well. She wanted to go home. Pain was under control with oral medications, Motrin and Tylenol only. She was ambulating without dizziness, voiding without difficulty, tolerating regular diet without nausea or vomiting. She was passing gas and she moved her bowels. Vital signs stable, afebrile. Bleeding was minimal. She was bleeding. She was without problems. Her H and H was 10.4/31.5. Her incision was clean, dry and intact. Abdomen was soft and nondistended at this time. Fundus was firm and her extremities were nontender, no erythema. Homans' signs were negative. Discharge instructions were given. Prescriptions were written for pain. She is to be seen in office in a week for incision check. All questions were answered.
== END 2019-04-15 15:50 | disposition home or self-care (01) | DRG 788 ==
LOC: 4S1 05:46 → EDSTATUS 07:30 → 4S2 11:16